=== PATIENT | male | born 1970 | race Caucasian/White ===

== ENCOUNTER → 2017-03-06 | Outpatient (CLI) | payer OTHER ==
[~2017-03-06] MED LIST: ADVIN50050 INH; ALBUAER2 INH; CLR10 PO; MEDLIST; PRLSR20 PO
--- NOTE | 2017-03-07 09:12 | PAP/PSG TECHNICIAN REPORT ---
[facility] Painting Department Supervisor Polysomnogram Report Study name: None Report date: 03/07/2017 Study date: 03/06/2017 Referring Physician: Maria C Bobby M.D. Name: ROSALIND JUNIOR Interpreting Physician: Lester Bobby M.D. Date of : 1970 Painting Department Supervisor: Brenda Murguia, PSGT. Sex: Male Age: 46 StudyType: PSG Weight: 188 lbs Height: 46 years, Height 5' 10.5" Neck Circum:15 inches BMI: 26.59 Medications: ProAir, Prilosec 20 mg, Singular 10 mg, Tums Ultra. Patient History 46 yr. old male in room 3, presents tonight for a split night study. states that he is a heavy snorer and that his has witnessed pauses during breathing. Pt. states that he is tired during the day at times. Neck 15 inches. Parameters Monitored NPSG: E1-M2, E2-M1, Fp1-M2, Fp2-M1, F3-M2, F4-M2, F4-M1, C3-M2, C4-M2, C4-M1, O1-M2, O2-M2, O2-M1, T3-M2, T4-M1, P3-M2, P4-M1, CHIN1, CHIN2, HR, EKG, Legs, PFLOW, SNOR, FLOW, CFLOW, Tidal Volume, THOR, ABDO, SpO2, PLTH, CPRESS, ETCO2 Wave, ETCO2, pH Sleep Architecture Sleep Stages Time at Lights Off 11:03:52 PM STAGES Time (min.) TST (%) Time at Lights On 5:30:22 AM Wake 11.0 -- Total Recording Time (TRT) 388.00 min. N1 5.0 1 Total Sleep Period (TSP) 378.5 min. N2 231.5 62 Total Sleep Time (TST) 375.5min. N3 28.5 8 Awake Time 11.0 min. REM 110.5 29 Wake after Sleep Onset 3.0 min. Sleep Efficiency (SE) 97 % Sleep Onset Latency (IFNN) 8.0 min. Number of Stage 1 Shifts None Awakenings 2 Stage Changes 20 Number of REM periods 4 REM 110.5 29 REM Latency 76.5 min. NREM 265.0 71 Body Position Analysis Supine Right Left Side Prone Vertical Total Sleep Time (min.) 64.0 0.0 118.7 118.66 0.0 203.8 Total Sleep Time (%) 17% 0% 32% 32 0% 100% Total Sleep Time REM (min.) 13.7 0.0 61.0 None 0.0 35.8 Total Sleep Time NREM (min.) 49.8 0.0 57.7 None 0.0 157.5 Intermittent Wake (min.) 0.5 0.0 0.0 None 0.0 10.5 Total Sleep Period (%) 17% None None None None None Arousals Myoclonus (PLM) * Events Count Index Events Count Index Spontaneous 16 3 Events Awake (PLMW) 0 0.0 Respiratory 0 0.0 Events Asleep w/ Arousal (PLMA) 1 0.2 PLM 1 0 Events Asleep w/o Arousal (PLMS) 148 23.6 Snoring 12 2 Total Asleep 149 23.8 Total 29 5 Total 149 23 Respiratory Analysis * CA OA MA CH H RERA Total Count 0 1 0 0 5 0 6 Index 0.0 0.2 0.0 0 0.8 0 1.0 Mean Duration 0.0 14.6 0.0 0.00 21.8 0.0 20.6 Longest Duration 0.0 14.6 0.0 0.00 0.0 0.0 39.6 Respiratory Event Summary Total Supine ~Supine Right Left Prone REM NREM Apneas Count 1 0 1 N/A 1 N/A 1 0 Index 0.2 0 0 N/A 0.5 N/A 1 0 Hypopneas (4% Desat) Count 5 0 5 N/A 1 N/A 1 4 Index 0.8 0.0 1 N/A 0.5 N/A 0.5 0.9 Apneas & All Hypopneas Count 6 0 6 N/A 2 N/A 2 4 Index 1.0 0 1 N/A 1 N/A 1.1 0.9 Respiratory Events (Organic Extractions Technician+All Hyp+RERA) Count 6 0 6 N/A 2 N/A 2 4 Index 1.0 0 1 N/A 1.0 N/A 1.1 0.9 Respiratory Related Arousal Count 0 0 0 N/A 0 N/A 0 0 Index 0.0 0 0 N/A 0 N/A 0 0 Snoring Analysis Supine Right Left Prone REM NREM Total Snore duration 55.5 min Snores count 286 N/A 938 N/A 653 1,279 1,932 Snore mean duration 1.7 Sec Snores index 270 N/A 474 N/A 354.6 289.6 308.7 TST with snoring (%) 14.8% Desaturation Event Summary: Minimum %SpO2 Event Count Mean/Min/Max Duration(sec.) Desaturation Index % Time In Bed > 90 6 26.8 / 8.5 / 44.5 2.4 39.4 86 - 90 4 20.6 / 8.5 / 35.0 1.0 60.6 81 - 85 0 N/A 0.0 0.0 76 - 80 0 N/A 0.0 0.0 71 - 75 0 N/A 0.0 0.0 66 - 70 0 N/A 0.0 0.0 61 - 65 0 N/A 0.0 0.0 56 - 60 0 N/A 0.0 0.0 51 - 55 0 N/A 0.0 0.0 < 50 0 N/A 0.0 0.0 Total REM NREM Awake <50% 0.0 min. 0.0 min. 0.0 min. 0.0 min. 51 - 60% 0.0 min. 0.0 min. 0.0 min. 0.0 min. 61 - 70% 0.0 min. 0.0 min. 0.0 min. 0.0 min. 71 - 80% 0.0 min. 0.0 min. 0.0 min. 0.0 min. 81 - 90% 234.1 min. 21.3 min. 204.1 min. 8.8 min. 91 - 100% 152.4 min. 89.3 min. 60.9 min. 2.2 min. Average 90 92 90 90 Minimum SpO2 86 86 87 87 Desaturation Event Index 0.9 1.6 0.7 0.0 # Desat. Events below 89% 4 1 3 N/A Time(%) with Saturation below 89% 18.2 0.3 17.6 0.3 Time(min.) with Saturation below 89% 70.3 1.2 67.9 1.2 Time (mins) REM (mins) NREM (mins) % of TST SpO2 Below 90% 6 3 N3 40.8 SpO2 Below 88% 1 0 0 3 Heart Rate Analysis Min (bpm) Max (bpm) Average (bpm) Awake 52 81 58 NREM 48 92 54 REM 49 80 57 Overall 48 92 55 Supplemental O2 Values Minimum O2 level: None Value Start Time End Time Painting Department Supervisor Comments PSG Study Mr. Junior slept in the left, and supine positions. No cardiac arrhythmia or PLM's noted. No bruxism noted. Snoring was noted and scored as a 4 on a scale of 1 through 5. (0=no snoring, 5=snoring loud enough to be heard through a closed door or down the [address] way) Mr. Junior awoke to use the restroom zero times during the night. Mr. Junior stated, I did sleep as well as I do when I am in my own bed. The final report will be interpreted and signed by a sleep physician. The completed physician report will then be placed in the patient medical record. Therapy (cm H2O) 0 TIB (min.) 386.5 TST (min.) 375.5 Sleep Onset (min.) 8.0 REM Onset From Sleep (min.) 76.5 Sleep Efficiency % 97 Wakefulness (%) 3 Wakefulness (min.) 11.0 NREM 1 (%) 1 NREM 1 (min.) 5.0 NREM 2 (%) 62 NREM 2 (min.) 231.5 NREM 3 (%) 8 NREM 3 (min.) 28.5 REM (%) 29 REM (min.) 110.5 # Arousals 29 Arousal Index 5 # Snore 1,932 Snore Index 308.7 AHI 1.0 AHI Supine 0 AHI Non-Supine 1 NREM AHI 0.9 REM AHI 1.1 RDI 1.0 # Obstructive Apnea 1 # Central Apnea 0 # Mixed Apnea 0 # Hypopneas 5 RERAs 0 Total Respiratory Events 6 Time Below SpO2 89% (min.) 69.1 Mean NREM SpO2 (%) 90 Mean REM SpO2 (%) 92 Mean Sleep SpO2 (%) 90 Min NREM SpO2 (%) 87 Min REM SpO2 (%) 86 Position Supine (min.) 64.0 Position Non-supine (min.) 312.0 LM Index Sleep 23.8 LM Index NREM 29.4 LM Index REM 10.3 Mean Heart Rate (bpm) 55 Min Heart Rate (bpm) 48
--- NOTE | 2017-03-14 19:59 | POLYSOMNOGRAPH REPORT ---
REFERRING PERSON: Dr. Justin Bobby. COUP[employer] COLLECTION CLERK: Vane Murguia. Mr. Junior is a 46-year-old male with loud snoring, witnessed apneas and some excessive daytime sleepiness. His [place] sleepiness scale score on the evening of this study is not recorded. BMI is 26.59. Following the technical and digital specifications of the [place] [employer] (AASM) a standard diagnostic polysomnogram was performed monitoring EEG, EOG, EMG (chin and leg deviations), oxygen saturation, body position, digital video, respiratory effort and airflow. The sleep Stage and event scoring was based on the AASM Manual for the Scoring of Sleep and Associated Events 2007 edition. Apneas are defined as a drop in the peak thermal sensor excursion by >90% of baseline for at least 10 seconds. Hypopneas were scored using the 4% oxygen desaturation rule (4A-[employer]) and a decrease in the nasal pressure excursions by >30% of baseline for at least 10 seconds. Respiratory effort-related arousal (RERA's) is defined as a sequence of breaths lasting at least 10 seconds characterized by increasing respiratory effort or flattening of the nasal pressure waveform leading to an arousal from sleep when the sequence of breaths does not meet criteria for an apnea or hypopnea. Apnea Hypopnea index (AHI) is defined as the number of apneas and hypopneas occurring in an hour of sleep. Respiratory disturbance index (RDI) is defined as the number of apneas, hypopneas, and RERA's occurring in an hour of sleep. Mr. Junior's total sleep period time was 378.5 minutes. Total sleep time was 375.5 minutes. Sleep efficiency was 97%. Latency to sleep onset was 8 minutes with wake after sleep onset of 3 minutes. Total non-REM sleep time was 265 minutes. He spent 1% of that time in N1 sleep, 62% in N2 sleep and 8% in N3 sleep. REM latency was 76.5 minutes. Total REM sleep time was 110.5 minutes or 29% of total sleep time. There were 29 cortical arousals from sleep. Eleven of these arousals were due to snoring, 16 were spontaneous, and 1 was due to periodic limb movements. There were 149 periodic limb movements noted on this test. Limb movement index was 23.8 and limb movement with arousal index was 0.2. There were no central, 1 obstructive and no mixed apnea on this test. There were 5 hypopneas and no RERA. Apnea-hypopnea index was 1; this is normal. One thousand nine hundred and thirty two snoring events were recorded. Total sleep time with snoring was 14.8%; however, when he did snore, it was loud. Mean saturation was 90% with desaturations to 86%. Saturations were less than 89 for 70.3 minutes of recorded time. There was no cardiac ectopy noted on this study. Mr. Junior's heart rate ranged from a low of 48 beats per minute to a high of 92 beats per minute. IMPRESSION AND PLAN: A 46-year-old male with loud snoring, witnessed apneas without sleep apnea on this study. However, he does have a significant nocturnal hypoxemia. 1. This patient does have a history of asthma. He is currently not treated with inhalers for his asthma. I suggest that he follow up with his PCP regarding his asthma as this is likely to be causing his nocturnal hypoxemia. His saturations were less than 89 for 70.3 minutes, but his lowest saturation was only 86%. 2. For his snoring, this patient may benefit from oral appliance therapy. He should also try to avoid supine sleep as snoring is typically worse in the supine position. SANJUD
== END | disposition home or self-care (01) ==
LOC: C.NEUR 21:00
PROVIDERS: ATTEND Family Medicine
DX: R06.83 Snoring (principal); G47.10 Hypersomnia, unspecified

== ENCOUNTER 2018-09-18 07:05 | Inpatient (IN) ==
[~2018-09-18 07:05] MED LIST changes: -ADVIN50050 INH; -ALBUAER2 INH; +CEFAZOLIN 2000MG 2,000 MG/15 ML SYR IV SCH; -CLR10 PO; -MEDLIST; -PRLSR20 PO
[2018-09-18] MEDS ORDERED: HYDROmorphone INJ 1 MG/ML SYRINGE ONE (07:07)
[2018-09-18] MEDS ORDERED: HYDROmorphone INJ 1 MG/ML SYRINGE IV PRN ×2 (07:10→15:53)
[2018-09-18] MEDS ORDERED: METOCLOPRAMIDE HCL INJ 5 MG/ML 2 ML VIAL IV STA (07:10)
--- NOTE | 2018-09-18 07:25 | XRay Report ---
RIGHT ANKLE 3 VIEWS HISTORY: Pt c/o Rt ankle pain COMPARISON: None. FINDINGS: Displaced spiral fractures involving the distal fibula and distal tibia. There is also a no ndisplaced posterior malleolus fracture. The distal tibial fractures extend to the articular surface. These fractures demonstrate up to 5 mm of lateral displacement. Diffuse soft tissue swelling. No rad iopaque foreign bodies. IMPRESSION: Mildly displaced distal tibial and fibular fractures as described above. Electronically signed by: Familia Hope M.D. 09/18/2018 7:23 AM
[2018-09-18] MEDS ORDERED: MIDAZOLAM HCL 5 MG/ML 1 ML VIAL IV STA (07:29)
[2018-09-18] MEDS ORDERED: fentaNYL citrate 100 MCG/2 ML VIAL IV STA (07:29)
[2018-09-18] MEDS ORDERED: MIDAZOLAM HCL 5 MG/ML VIAL ONE (07:34)
[2018-09-18] MEDS ORDERED: PERCOCET 5/325MG HOMEPACK PO ONE (07:51)
--- NOTE | 2018-09-18 07:51 | Emergency Department Note ---
Entered by Leandro Humphries acting as a scribe for Jesus Delgadillo MD History of Present Illness General Chief complaint: Ankle Pain Time Seen by Provider: 09/18/18 07:10 Source: patient Mode of arrival: EMS Limitations: no limitations History of Present Illness Provider complaint: Rt ankle pain Onset (ago): hour(s) Location: ankle and right Pain Consistency: + constant Quality: + other (fall on ice, ankle pain) Associated symptoms: + denies other symptoms Treatments prior to arrival: other (50 Fentanyl, 4 mg Zofran) The patient is a 48 year old male who presents to the Emergency Room with complaints of constant pain in the right ankle that began this morning. The patient states that he was walking his dog this morning when he slipped on some ice. He tried to catch himself with his right leg and believes he injured the right ankle. He denies hitting his head. He denies any pain radiating up into the right knee. The patient reports to the ED via EMS who administered 100 of Fentanyl and 4 mg of Zofran prior to arrival. Home Medications Home Medications Medication Instructions Recorded Confirmed Type albuterol sulfate [Ventolin HFA] 2 puff INHALATION BID PRN 09/18/18 09/18/18 History calcium carbonate [Calcium 500] 750 mg PO QAM 09/18/18 09/18/18 History montelukast 10 mg PO QAM 09/18/18 09/18/18 History omeprazole 20 mg PO QAM 09/18/18 09/18/18 History acetaminophen [Pain Reliever] 1,000 mg PO Q8 14 Days #84 tab 09/19/18 Rx aspirin 325 mg PO QAM 30 Days #30 tab 09/19/18 Rx oxycodone 5 - 10 mg PO Q6H PRN #30 tab 09/19/18 Rx Allergies Allergy/AdvReac Type Severity Reaction Status Date / Time No Known Allergies Allergy NONE Unverified 09/18/18 08:20 Past Med/Surg History Medical History Asthma with bronchitis Social History marital status: Current Living Situation: Spouse and Family current occupational status: employed Other Information That Helps Us Care for You: No Feels Safe at Home: Yes Safety Concerns: Feels Safe At This Time Smoking Status: Never smoker Hx Alcohol Use: Yes Alcohol type: beer Alcohol Intake Frequency: a few times a month Hx Substance Use: No Beliefs That Will Affect Care: None Preferred Language: Telugu Review of Systems See HPI for pertinent positives & negatives. and A total of 10 systems reviewed and were otherwise negative Physical Exam Vital Signs Vital Signs - 24 hr 09/19/18 06:54 09/19/18 08:00 09/19/18 11:19 Temperature 36.5 C 36.5 C Temperature Source Oral Pulse Rate [Apical] 71 71 Pulse Rate [Right Finger] 88 Respiratory Rate 18 18 Respiratory Effort / Characteristics Non-Labored Respiratory Depth Normal Respiratory Pattern Regular Blood Pressure [Right Arm] 143/89 H 143/89 H Blood Pressure Mean [Right Arm] 107 Pulse Oximetry 95 95 Oxygen Delivery Method Room Air Room Air GENERAL: Awake, alert, well-appearing, in no acute distress HENT: Normocephalic, atraumatic. Oropharynx unremarkable. EYES: Normal conjunctiva. Sclera non-icteric. NECK: Supple. No nuchal rigidity. FROM. No JVD. RESPIRATORY: Clear to auscultation. CARDIAC: Regular rate, normal rhythm. Extremities warm and well perfused. Pulses equal. ABDOMEN: Soft, non-distended. No tenderness to palpation. No rebound or guarding. No masses. RECTAL: Deferred. MUSCULOSKELETAL: Chest examination reveals no tenderness. The back is symmetrical on inspection without obvious abnormality. There is no CVA tenderness to palpation. No joint edema. LOWER EXTREMITIES: There is pain to light touch of the right ankle. No obvious deformity to the distal medial aspect of the ankle. Good capillary refill. No pain with ROM of the right knee. No edema. No discoloration. NEURO: Normal sensorium. No sensory or motor deficits noted. SKIN: No rash or jaundice noted. Procedures Procedural Sedation Indication: fracture/dislocation reduction Presedation Evaluation: Pt Rt tib/fib fracture ASA Class: I Time of Last PO Intake: 18:00 Preparation: pyroglazer applied, pulse oximeter, capnometry used, supplemental O2 applied, reversal agents at bedside, suction/airway equipment at bedside and IV secured Fentanyl: IV Fentanyl dose (mcg): 50 Midazolam: IV Midazolam dose (mg): 2 Patient Tolerated Procedure: well Complications: none Additional Comments: Sedation occurred for 16 minutes Course 0708: Past medical records reviewed. The patient was evaluated in room A10, and a complete history and physical examination were performed. 0715: I performed conscious sedation to reduce the patient's fracture. See procedure note and additional documentation. 0803: I discussed the case with Dr. Schultz - Orthopedic Surgery. He will review xrays. 0827: Dr. Schultz is at bedside. 0857: Dr. Schultz will admit the patient to medicine. Administered Medications Discontinued Medications Acetaminophen (Tylenol) 1,000 mg PO Q8 [facility] Stop: 10/18/18 21:59 Last Admin: 09/19/18 05:48 Dose: 1,000 mg Admin: 09/18/18 21:42 Dose: 1,000 mg Aspirin (Ecotrin) 325 mg PO QAM [facility] Stop: 10/19/18 08:59 Last Admin: 09/19/18 09:59 Dose: 325 mg Bacitracin (Bacitracin) Confirm Administered Dose 50,000 units .ROUTE .STK-MED ONE Stop: 09/18/18 15:44 Last Admin: 09/18/18 18:21 Dose: 50,000 units Bupivacaine HCl/Epinephrine Bitart (Sensorcaine/Epinephrine 0.5% Mpf 1:200,000) Confirm Administered Dose 30 ml .ROUTE .STK-MED ONE Stop: 09/18/18 15:01 Last Admin: 09/18/18 18:22 Dose: Not Given Calcium Carbonate (Os-Laurent 500) 1,250 mg PO QAM [facility] Stop: 10/18/18 10:29 Last Admin: 09/19/18 09:54 Dose: 1,250 mg Admin: 09/18/18 11:02 Dose: Not Given Docusate Sodium (Colace) 100 mg PO BID [facility] Stop: 10/18/18 20:59 Last Admin: 09/19/18 09:54 Dose: 100 mg Admin: 09/18/18 21:42 Dose: 100 mg Fentanyl Citrate (Fentanyl Citrate) 100 mcg IV NOW [facility] Stop: 09/18/18 07:30 Last Admin: 09/18/18 07:39 Dose: 50 mcg Hydromorphone HCl (Dilaudid) Confirm Administered Dose 1 mg .ROUTE .STK-MED ONE Stop: 09/18/18 07:08 Last Admin: 09/18/18 07:09 Dose: 1 mg Hydromorphone HCl (Dilaudid) 0.5 mg IV Q4H PRN PRN Reason: Pain Stop: 10/02/18 10:19 Last Admin: 09/18/18 11:02 Dose: 0.5 mg Cefazolin Sodium (Ancef 2000mg) 2,000 mg in 15 mls @ 3.75 mls/min IV PREOP [facility] ; Protocol Stop: 09/19/18 05:59 Last Admin: 09/18/18 15:40 Dose: 3.75 mls/min Sodium Chloride (Nss 1000ml) 1,000 mls @ 15 mls/hr IV .Q24H [facility] Stop: 10/18/18 10:19 Last Infusion: 09/19/18 10:42 Dose: 0 mls/hr Admin: 09/18/18 11:03 Dose: 15 mls/hr Cefazolin Sodium (Ancef 2000mg) 2,000 mg in 15 mls @ 3.75 mls/min IV Q8H [facility]; Protocol Stop: 09/19/18 08:03 Last Admin: 09/19/18 09:54 Dose: 3.75 mls/min Admin: 09/19/18 00:07 Dose: 3.75 mls/min Sodium Chloride (Nss 1000ml) 1,000 mls @ 100 mls/hr IV .Q10H [facility] Stop: 09/19/18 18:39 Last Admin: 09/19/18 07:58 Dose: Not Given Metoclopramide HCl (Reglan) 10 mg IV NOW STA Stop: 09/18/18 07:11 Last Admin: 09/18/18 07:18 Dose: 10 mg Midazolam HCl (Versed) 2 mg IV NOW STA Stop: 09/18/18 07:30 Last Admin: 09/18/18 07:38 Dose: 2 mg Midazolam HCl (Versed) Confirm Administered Dose 10 mg .ROUTE .STK-MED ONE Stop: 09/18/18 07:35 Last Admin: 09/18/18 07:54 Dose: Not Given Montelukast Sodium (Singulair) 10 mg PO QAM [facility] Stop: 10/18/18 10:29 Last Admin: 09/19/18 09:54 Dose: 10 mg Admin: 09/18/18 11:02 Dose: Not Given Multivitamins (Multivitamin Tab) 1 tab PO QAM [facility] Stop: 10/19/18 08:59 Last Admin: 09/19/18 09:54 Dose: 1 tab Ondansetron HCl (Zofran) 4 mg IV Q6H PRN PRN Reason: Nausea/Vomiting Stop: 10/18/18 10:19 Last Admin: 09/18/18 19:57 Dose: 4 mg Oxycodone HCl (Roxicodone Immediate Rel) 5 mg PO Q4H PRN PRN Reason: pain Stop: 10/02/18 09:13 Last Admin: 09/19/18 11:05 Dose: 5 mg Admin: 09/19/18 09:55 Dose: 5 mg Oxycodone/Acetaminophen (Percocet 5/325 Homepack) 1 homepack PO UD ONE Stop: 09/18/18 07:52 Last Admin: 09/18/18 10:09 Dose: Not Given Pantoprazole Sodium (Protonix) 40 mg PO QAM [facility] Stop: 10/18/18 10:29 Last Admin: 09/19/18 09:54 Dose: 40 mg Admin: 09/18/18 11:02 Dose: Not Given Medical Decision Making Differential Diagnosis Differential diagnosis: Etiologies such as fracture, dislocation, neurovascular compromise, compartment syndrome, soft tissue injury, as well as others were entertained. Medical Records Attestation: I reviewed the patient's medical records. Home Medications Current Medication List: was personally reviewed by [place] Laboratory Data Lab Results 09/18/18 Range/Units 10:41 Blood Type O Positive Antibody Screen NEGATIVE Imaging Data Attestation: I personally reviewed and interpreted this imaging study as follows : Radiologist's Impression: XR ankle RT min 3V routine CLINICAL HISTORY: Pt c/o Rt ankle pain COMPARISON STUDY: Right ankle 09/18/2018. FINDINGS: Overlying splint material obscures fine bony detail. Interval reduction of the distal fibular and distal tibial fractures with improved anatomic alignment. There is up to 2 mm of lateral and posterior displacement remaining. No dislocation. Diffuse soft tissue swelling. IMPRESSION: Improved anatomic alignment status post reduction of the distal fibular/tibial fractures. Electronically signed by: Familia Hope M.D. 09/18/2018 8:16 AM RIGHT ANKLE 3 VIEWS HISTORY: Pt c/o Rt ankle pain COMPARISON: None. FINDINGS: Displaced spiral fractures involving the distal fibula and distal tibia. There is also a nondisplaced posterior malleolus fracture. The distal tibial fractures extend to the articular surface. These fractures demonstrate up to 5 mm of lateral displacement. Diffuse soft tissue swelling. No radiopaque foreign bodies. IMPRESSION: Mildly displaced distal tibial and fibular fractures as described above. Electronically signed by: Familia Hope M.D. 09/18/2018 7:23 AM Blood Pressure Blood Pressure Findings: Elevated blood pressure MDM Narrative This is a 48-year-old male who presents the emergency department during a period of high volume and high acuity with an obvious deformity to his right ankle. Patient was sedated and the ankle reduced as above so could be placed in a splint. He was given IV Dilaudid for his pain. I did discuss the case with the orthopedic surgeon [employer] who agreed to see the patient and admit the patient. Patient and are in agreement with the treatment plan. Impression & Plan Closed fracture of right fibula and tibia Discharge Plan Visit Data *Final* Discharge Date/Time: 09/18/18 09:59 Chief Complaint: Ankle Pain ED Provider: Jesus Delgadillo Discharge Problem: Closed fracture of right fibula and tibia Patient Disposition: Admitted As Inpatient Discharge Instructions Interventions: ED Discharge Assessment Last Done: 09/18/18 09:59 The scribe's documentation has been prepared under my direction and personally reviewed by me in its entirety. I confirm that the note above accurately reflects all work, treatment, procedures, and medical decision making performed by me.
--- NOTE | 2018-09-18 07:54 | Pre Anesthesia Assessment ---
Date of Service September 18, 2018 Pre Sedation Assessment Vital Signs Temp Pulse Pulse Resp BP Pulse Ox 09/19/18 11:19 36.5 C 71 88 18 143/89 H 95 09/19/18 06:54 36.5 C 71 18 143/89 H 95 Pre-Sedation Airway Assessment Smoking Status: Never smoker Short, Thick Neck: No Mallampati Class: I ASA: ASA1 NPO Status Date of Last Intake of Fluids: 09/17/18 Time of Last Intake of Fluids: 21:00 Date of Last Intake of Solid Food: 09/17/18 Time of Last Intake of Solid Foods: 21:00 Notes The planned sedation has been discussed with the patient. Informed Consent was obtained. I have identified the patient, determined the appropriateness of sedation and have assessed the patient immediately prior to the procedure. All medicine(s) and interventions are by my order.
--- NOTE | 2018-09-18 07:54 | Emergency Department Note ---
Post Sedation Assessment Vital Signs Temp Pulse Pulse Resp BP Pulse Ox 09/19/18 11:19 36.5 C 71 88 18 143/89 H 95 09/19/18 06:54 36.5 C 71 18 143/89 H 95 Post Sedation Plan On clinical assessment, the patient appears to have tolerated the sedation without complications. Patient is recovering as anticipated. Patient will continue to be monitored by nursing and may be discharged when sedation discharge criteria are met per below protocol. Upon Completions of procedure and additional 15 minutes continue every 5 minute vital signs and the P.A.R. score; then discharge to a Phase I or Fast Track to Phase II per the following guidelines: * Discharge Patient to appropriate Phase II area if PAR is 8 or greater or return to pre- procedure baseline. The post - procedure orders will be as directed. * If PAR score is less than 8 or not return to pre-procedure baseline then patient will follow Phase I monitoring till PAR is reached for Phase II. The Phase I may be done in procedure room or may call to secure a Phase I area. * If naloxone or flumazenil are used for reversal, hold in Phase I for continued monitoring from when last reversal dose was given for a minimum of 60 minutes or longer pending the nurse and/or physician discretion of patient condition before discharge to Phase II. Please call the Sedation Physician to re-evaluate and complete post-note for discharge to Phase II area. Do NOT discharge from procedure sedation or Phase 1 until post- sedation evaluation note is complete by procedure /sedation MD Sedation Discharge Instructions to be given to the patient at discharge to home. Sedation Data Sedation Times Sedation Start Date: 09/18/18 Sedation Start Time: 07:39
--- NOTE | 2018-09-18 08:18 | XRay Report ---
XR ankle RT min 3V routine CLINICAL HISTORY: Pt c/o Rt ankle pain COMPARISON STUDY: Right ankle 09/18/2018. FINDINGS: Overlying splint material obscures fine bony detail. Interval reduction of the distal fibul ar and distal tibial fractures with improved anatomic alignment. There is up to 2 mm of lateral and p osterior displacement remaining. No dislocation. Diffuse soft tissue swelling. IMPRESSION: Improved anatomic alignment status post reduction of the distal fibular/tibial fractures . Electronically signed by: Familia Hope M.D. 09/18/2018 8:16 AM
[2018-09-18] MEDS ORDERED: ONDANSETRON INJ 2 MG/ML 2 ML VIAL IV PRN ×2 (10:20→15:53)
[2018-09-18] MEDS ORDERED: DiphenhydrAMINE HCL 50 MG/ML VIAL IV PRN (10:20)
[2018-09-18] MEDS ORDERED: HYDROmorphone INJ 0.5 MG/0.5 ML SYR IV PRN (10:20)
[2018-09-18] MEDS ORDERED: ALBUTEROL HFA 8 GM INHALER INH PRN (10:20)
[2018-09-18] MEDS ORDERED: SODIUM CHLORIDE 0.9% 1000ML 1,000 ML IV SCH ×2 (10:20→18:40)
[2018-09-18] MEDS: MONTELUKAST SODIUM 10 MG TABLET PO SCH (11:02)
[2018-09-18] MEDS: CALCIUM CARBONATE 1250MG TAB PO SCH (11:02)
[2018-09-18] MEDS: PANTOprazole 40 MG TAB PO SCH (11:02)
[2018-09-18] MEDS ORDERED: fentaNYL citrate 100 MCG/2 ML VIAL ONE ×2 (12:41→15:00)
[2018-09-18] MEDS ORDERED: MIDAZOLAM HCL 1 MG/ML 2ML VIAL ONE ×2 (12:41→14:59)
--- NOTE | 2018-09-18 13:06 | History and Physical Report ---
DATE OF ADMISSION: 09/18/2018 REASON FOR ADMISSION: Pain in the right ankle. HISTORY OF PRESENT ILLNESS: The patient is a 48-year-old white male who was walking the dog this morning, he was going up in alleyway and thought it was clear of any ice, etc., he ended up slipping and twisting his ankle and falling to the ground. He noticed that his ankle was in a weird position and was having a lot of pain and was unable to ambulate. He was brought to the Emergency Room and was seen by the staff. X-rays were taken and it was found that he had distal tib-fib fracture. Dr. Delgadillo did a closed reduction and placed the patient's ankle in a splint. Dr. Brown reviewed the x-rays and it was felt that the patient would need an ORIF of the right ankle and he was admitted for further care. PAST MEDICAL HISTORY: Asthma, GERD. He denies hypertension, diabetes mellitus, tuberculosis, hepatitis, COPD, rheumatic fever. PAST SURGICAL HISTORY: Vasectomy. FAMILY HISTORY: Diabetes with his mother. History of depression with his mother and father. Alcoholism with his father. SOCIAL HISTORY: The patient is and does not use tobacco, but does drink alcohol on occasion, mainly over the weekend. MEDICATIONS: He is on albuterol inhaler 2 puffs inhaled b.i.d. p.r.n. shortness of breath, montelukast 10 mg p.o. q.a.m., omeprazole 20 mg p.o. q.a.m. and calcium carbonate 750 mg p.o. q.a.m. ALLERGIES: NKDA. REVIEW OF SYSTEMS: No recent fevers, chills, night sweats, unexplained weight loss or weight gain. No flu or cold-like symptoms. No increased cough or sputum production. No shortness of breath on exertion or at rest. He has not had an exacerbation of his asthma that has required hospitalization and he states that he rarely carries his inhaler anymore due to the fact that it is so well controlled. No history of chest pain, chest pressure, irregular heartbeat. No history of CAD. No history of abdominal pain, unusual nausea, vomiting or diarrhea. No hematemesis, melena, hematochezia. No history of hepatitis. Denies any history of renal calculi, hematuria, pyuria, dysuria or frequent urinary tract infections. No history of CVA, TIA, seizure disorder, epilepsy or migraine headache. PHYSICAL EXAMINATION: GENERAL: The patient is a well-developed, well-nourished white male who is alert and oriented x3 in no acute distress, pleasant and cooperative. SKIN: Warm and dry. Turgor is good. HEENT: Head is normocephalic, atraumatic. There is no scleral icterus or injection seen at this time. Nasal airway is patent. Oral mucosa is pink and moist. NECK: Supple without adenopathy or bruits. HEART: Regular rate and rhythm without murmurs, gallops or splits. LUNGS: CTA without rales, rhonchi or wheezes. ABDOMEN: Soft, round and nontender. Bowel sounds are present x4. GENITALIA AND RECTAL: Not performed at this time. EXTREMITIES: On examination of the right lower extremity, he has a posterior splint applied to the foot, ankle and is left in place. Toes were pink and warm, and they move well and he has good sensation. He does have a good dorsalis pedis pulse noted. He has no pain in the right knee. He has no pain in the right hip. Left lower extremity at this time is benign on exam and has good range of motion. Upper extremities are unaffected and are within normal limits and has good range of motion as well. He denies any neck pain. Denies thoracic or low back pain at this time. There was no gross motor or sensory loss seen at this time. ASSESSMENT: Distal tibia and fibular fracture. PLAN: The patient will require ORIF of above-noted fracture.
--- NOTE | 2018-09-18 14:40 | History & Physical Bridge Note ---
Date of Service September 18, 2018 History & Physical Bridge Note I have examined the patient, reviewed the History & Physical and in the interval since the performance of the History & Physical I have noted the following changes of clinical significance: no changes noted
--- NOTE | 2018-09-18 14:48 | Anesthesiology Consultation ---
Date of Service September 18, 2018 Assessment & Plan (1) Encounter for pre-operative examination: Chart Review Chart Review: Acceptable Risk for Surgery and Patient NOT seen in Pre Admission Testing Consults Requested none NPO Date Last Intake of Fluids: 09/17/18 Time Last Intake of Fluids: 23:00 Date Last Intake of Solids: 09/17/18 Time Last Intake of Solids: 20:30 History Surgery Operation Date: 09/18/18 11:20 Proposed Procedures p Open Reduction Internal Fixation Ankle Right Distal Tibula/Fibula Fracture - Simon Brown DO Height/Weight Height: 5 ft 10 in Weight: 86 kg Allergies Allergy/AdvReac Type Severity Reaction Status Date / Time No Known Allergies Allergy NONE Unverified 09/18/18 08:20 Medications Home Medications Medication Instructions Recorded Confirmed Last Taken albuterol sulfate [Ventolin HFA] 2 puff INHALATION BID PRN 09/18/18 09/18/18 Unknown calcium carbonate [Calcium 500] 750 mg PO QAM 09/18/18 09/18/18 09/17/18 21:00 montelukast 10 mg PO QAM 09/18/18 09/18/18 09/17/18 21:00 omeprazole 20 mg PO QAM 09/18/18 09/18/18 09/17/18 21:00 Active Medications Generic Name Dose Route Start Last Admin Trade Name Freq PRN Reason Stop Dose Admin Calcium Carbonate 1,250 mg 09/18/18 10:30 09/18/18 11:02 Os-Laurent 500 PO 10/18/18 10:29 Not Given QAM UMAIR Hydromorphone HCl 0.5 mg 09/18/18 10:20 09/18/18 11:02 Dilaudid IV 10/02/18 10:19 0.5 mg Q4H PRN Administration Pain Sodium Chloride 1,000 mls @ 15 mls/hr 09/18/18 10:20 09/18/18 11:03 Nss 1000ml IV 10/18/18 10:19 15 mls/hr .Q24H UMAIR Administration Montelukast Sodium 10 mg 09/18/18 10:30 09/18/18 11:02 Singulair PO 10/18/18 10:29 Not Given QAM UMAIR Pantoprazole Sodium 40 mg 09/18/18 10:30 09/18/18 11:02 Protonix PO 10/18/18 10:29 Not Given QAM [facility] Past Medical History Medical History Asthma with bronchitis Past Surgical History none Past Anesthesia History No Hx of Anesthesia Complications and No Family Hx of Anesthesia Complications History of PONV No Motion Sickness Screening History of Motion Sickness: No Social History Smoking Status: Never smoker Hx Alcohol Use: Yes Alcohol type: beer alcohol intake frequency: a few times a month Hx Substance Use: No substance use type: does not use Exercise / Class Metabolic Activity II 4-5 Yardwork/Stairs/Walk up hill Physical Exam Vital Signs Last Vital Signs Temp 36.8 C 09/18/18 14:31 Pulse 61 09/18/18 14:31 Resp 18 09/18/18 14:31 BP 136/92 09/18/18 14:31 Pulse Ox 99 09/18/18 14:31 Testing Laboratory Results Blood Type O Positive 09/18/18 10:41 Antibody Screen NEGATIVE 09/18/18 10:41
[2018-09-18] MEDS ORDERED: ROPIVACAINE 0.5% 5 MG/ML 30 ML VIAL ONE (14:55)
[2018-09-18] MEDS ORDERED: LIDOCAINE HCL 2% 2 ML VIAL/AMP(20MG/ML) INFIL ONE (14:59)
[2018-09-18] MEDS ORDERED: PROPOFOL IV EMULSION 10 MG/ML 20 ML VIAL IV ONE (14:59)
[2018-09-18] MEDS ORDERED: BUPIVACAINE/EPINEPHRINE 0.5% MPF 1:200,000 30 ML VIAL ONE (15:00)
[2018-09-18] MEDS ORDERED: BACITRACIN INJ 50,000 UNIT VIAL ONE (15:43)
[2018-09-18] MEDS ORDERED: DEXAMETHASONE SOD INJ 4 MG/ML VIAL ONE (15:43)
[2018-09-18] MEDS ORDERED: HYDROmorphone INJ 2 MG/ML SYR/VIAL ONE (15:43)
[2018-09-18] MEDS ORDERED: ONDANSETRON INJ 2 MG/ML 2 ML VIAL ONE (15:43)
[2018-09-18] MEDS ORDERED: ATROPINE SULFATE 0.1 MG/ML 10ML SYR IV PRN (15:53)
[2018-09-18] MEDS ORDERED: fentaNYL citrate 100 MCG/2 ML VIAL IV PRN (15:53)
[2018-09-18] MEDS ORDERED: ePHEDrine sulfate 50 MG/ML AMP IV PRN (15:53)
[2018-09-18] MEDS ORDERED: ePHEDrine sulfate 50 MG/ML SYR ONE (15:55)
[2018-09-18] MEDS ORDERED: GLYCOPYRROLATE 0.2 MG/ML VIAL ONE (16:16)
--- NOTE | 2018-09-18 17:41 | Post Operative Brief Note ---
Immediate Post Op Note v1 Date of Surgery September 18, 2018 Pre & Post Diagnosis Operation Date: 09/18/18 11:20 Pre-Op Diagnosis: Right displaced, intra-articular, comminuted distal Tibial pilon fracture and displaced lateral malleolus fracture Post-Op Diagnosis: Right displaced, intra-articular, comminuted distal Tibial pilon fracture and displaced lateral malleolus fracture Procedure Operation Date: 09/18/18 11:20 Actual Procedures p Open Reduction Internal Fixation Ankle Right intra-articular, displaced distal Tibial pilon fracture/and lateral malleolus fracture(Right) - Simon Brown DO Surgeon Simon Brown DO Wool Scourer Diaz Schultz PA-C Estimated Blood Loss 20 Findings Consistent with Post-Op Diagnosis Specimens None Anesthesia Type General Regional Complications none Disposition Accompanied Patient To Recovery: No Disposition: Recovery Room Overlapping Procedure I was present for: the critical portions of procedure. I was immediately available: during the entire case.
--- NOTE | 2018-09-18 18:04 | Fluoroscopy Report ---
FL tibia/fibula RT 2V HISTORY: 48 years-old Male RT TIB/FIB FX status post RF of acute distal tibial and fibular fractures COMPARISON: Right ankle radiographs of same day at 7:54 AM TECHNIQUE: 3 spot fluoroscopic images of the right tibia and fibula were obtained utilizing 72.2 seco nds fluoroscopy time FINDINGS: Status post ORIF changes of the distal leg with medial plate and screw fixation of the distal tibia a nd lateral plate and screw fixation of the distal fibula. There is improved near anatomic alignment o f the acute distal tibial and fibular fractures, improved from comparison. IMPRESSION: Improved alignment status post ORIF. The above report was generated using voice recognition software. It may contain grammatical, syntax o r spelling errors. Electronically signed by: Mervin Lr M.D. 09/18/2018 6:03 PM
--- NOTE | 2018-09-18 18:11 | Anesthesiology Progress Note ---
Date of Service September 18, 2018 Anesthesia Post Procedure Vital Signs Vital Signs: Temp Pulse Pulse Pulse Resp BP BP 09/18/18 18:05 84 16 09/18/18 17:55 78 16 09/18/18 17:45 36.4 C L 93 H 17 09/18/18 14:31 36.8 C 61 18 136/92 09/18/18 10:24 36.5 C 62 18 135/81 09/18/18 08:55 68 16 120/89 09/18/18 08:15 54 L 122/87 09/18/18 08:07 67 125/89 09/18/18 08:05 69 131/81 09/18/18 07:55 60 09/18/18 07:52 67 132/94 09/18/18 07:43 72 161/100 H 09/18/18 07:40 85 133/99 09/18/18 07:37 09/18/18 07:13 36.7 C 69 14 146/92 H 09/18/18 07:06 66 146/92 H BP Pulse Ox 09/18/18 18:05 139/82 95 09/18/18 17:55 136/89 98 09/18/18 17:45 139/90 98 09/18/18 14:31 99 09/18/18 10:24 99 09/18/18 08:55 97 09/18/18 08:15 94 09/18/18 08:07 98 09/18/18 08:05 98 09/18/18 07:55 09/18/18 07:52 97 09/18/18 07:43 98 09/18/18 07:40 100 09/18/18 07:37 99 09/18/18 07:13 100 09/18/18 07:06 Pain Intensity Right Ankle: Pain Intensity: 5 Notes Mental Status: alert / awake / arousable and participated in evaluation Patient Amnestic to Procedure: Yes Nausea / Vomiting: adequately controlled Pain: adequately controlled Airway Patency, RR, SpO2: stable & adequate BP & HR: stable & adequate Hydration State: stable & adequate Anesthetic Complications: no major complications apparent and Pt Satisfied with anesthetic care
[2018-09-18] MEDS ORDERED: METOCLOPRAMIDE HCL INJ 5 MG/ML 2 ML VIAL IV PRN (18:26)
[2018-09-18] MEDS ORDERED: MAGNESIUM HYDROXIDE SUSP 30 ML UDC PO PRN (18:26)
[2018-09-18] MEDS ORDERED: NALOXONE HCL 0.4 MG/1 ML VIAL/CARP IV PRN (18:26)
[2018-09-18] MEDS: ACETAMINOPHEN 500 MG TAB PO SCH (21:42)
[2018-09-18] MEDS: DOCUSATE SODIUM 100 MG CAP PO SCH (21:42)
[2018-09-18] MEDS ORDERED: Nursing to Pharmacy Communication ONE (23:17)
[2018-09-19] MEDS: CEFAZOLIN 2000MG 2,000 MG/15 ML SYR IV SCH ×2 (00:07→09:54)
--- NOTE | 2018-09-19 01:30 | Operative Report ---
DATE OF OPERATION: 09/18/2018 PREOPERATIVE DIAGNOSES: 1. Right displaced intraarticular tibial pilon fracture. 2. Displaced lateral malleolus fracture. POSTOPERATIVE DIAGNOSES: 1. Right displaced intraarticular tibial pilon fracture. 2. Displaced lateral malleolus fracture. PROCEDURES: 1. Right open reduction internal fixation tibial pilon fracture. 2. Open reduction internal fixation lateral malleolus fracture with application of splint. SURGEON: Simon Brown DO SHEET METAL ROOFER: ALTAF aCmacho who was present for patient positioning, sterile prep and drape, management of retractors and instruments. He was present through the critical portions of the case including wound closure, application of sterile dressing and transport of the patient to recovery. ANESTHESIA: General LMA with popliteal block. SPECIMENS: None. DRAINS: None. COMPLICATIONS: None. BLOOD LOSS: 20 mL. PERTINENT HISTORY: This is a 48-year-old gentleman who sustained a twisting fall on his right lower extremity earlier today while walking a dog. He had obvious displaced deformity of the right ankle, unable to ambulate, transported to [facility], radiographs were performed and noted to be a fracture dislocation involving the right tibial pilon fracture and the distal tibia lateral malleolus. The emergency physician reduced and splinted the limb and the patient was then seen by orthopedics and then after evaluation, the patient was then scheduled for surgery as indicated. All potential risks, benefits, complications, alternatives, rehab, potential risk of incomplete relief of symptoms, need for further surgery, deep venous thrombosis, pulmonary embolism, , persistent pain, swelling, scarring, weakness, neurovascular injury, wound complications, hardware failure, nonunion, malunion and bone fracture were discussed with the patient. The patient decided to proceed with the procedure as indicated. DESCRIPTION OF PROCEDURE: The patient had a popliteal block performed in the Preoperative Holding Area and then taken to the operative suite, placed supine on the Operating Room table. I reviewed consent and identification of operative site and the patient. The patient was anesthetized, LMA was placed. Tourniquet was placed on the right thigh over cast padding. Right lower extremity was sterilely prepped and draped in the usual fashion, elevated and exsanguinated with an Esmarch bandage, tourniquet inflated to 350 mmHg. Next, a 15 blade scalpel was used to make an incision over the lateral malleolus. Incision was deepened through subcutaneous tissue. Meticulous hemostasis was achieved with electrocautery. Full thickness skin flaps were developed. Sensory cutaneous nerves and the deep peroneal nerve were retracted and protected with Fermín rakes. Peroneal tendons were also retracted and protected. Incision was made over the periosteum at the site of the fracture. Hematoma was evacuated. The fracture was then irrigated and debrided with a dental pick and then reduced with lions jaw forceps x2. Next, a 3.5 mm lag screw was placed from anterior to posterior under live fluoroscopic assistance followed by confirmation of near anatomic reduction and fixation of the fibula. Next, a Synthes locking one-third tubular plate was then contoured and then firmly affixed to the lateral malleolus to stabilize and the anatomic reduction and fixation. Next, attention then directed toward the medial malleolus and the tibial pilon. A 15 blade scalpel was used to make an incision centered over the medial malleolus extending from proximal to distal. The incision was deepened through subcutaneous tissue. Meticulous hemostasis was achieved with cautery. The saphenous vein was retracted and protected. Next, a Barron elevator was used to elevate periosteum of the medial and anterior aspect of the tibia followed by placement of a locking periarticular medial distal tibial plate which was then contoured with the bending iron. Next, this was then placed through the subcutaneous incision site and guided up the proximal tibia under live fluoroscopic assistance. Next, a nonlocking screw was placed distally to compress the fracture and the plate to the bone followed by placement of a second nonlocking screw in the mid portion of the plate through a small stab incision and fluoroscopic assistance. This achieved anatomic reduction and fixation and stabilization of the plate and bone of the tibia to assure a low profile fixation. Next, multiple stab incisions were made into the medial lower leg under live fluoroscopic assistance with placement of multiple locking screws to achieve anatomic reduction and fixation of the tibial pilon fracture. Next, stress views were obtained confirming that the syndesmosis was indeed reduced and intact, followed by copious irrigation with sterile normal saline in all incisions. Next, the deep periosteum was then closed in the lateral aspect with interrupted 2-0 Vicryl sutures. The medial periosteum was closed over the distal plate with interrupted 2-0 Vicryl. The dermis was closed using buried interrupted 3-0 Vicryl and then skin incisions were all closed with 4-0 nylon sutures. Next, a sterile compressive dressing and bulky Socrates Raymundo plaster splint was applied with the foot held in neutral dorsiflexion. The tourniquet was released. The patient was awakened and taken to Recovery Room in a stable condition. I attest to the content of the Intraoperative Record and any orders documented therein. Any exception s are noted below.
[2018-09-19] MEDS: ACETAMINOPHEN 500 MG TAB PO SCH (05:48)
--- NOTE | 2018-09-19 07:44 | Orthopedic Progress Note ---
Date of Service September 19, 2018 Assessment & Plan (1) Closed fracture of right fibula and tibia: POD 1 s/p ORIF Tib/Fib fx PT/OT today Plan for dc to home today if tolerating PT and pain remains controlled Subjective POD 1 s/p Right ORIF distal Tib/Fib fx Pt awake, alert. No complaints this AM. Feels the block is still working well. Denies pain at this time. Physical Exam 2 Vital Signs (Past 24 Hours): Last Vital Signs Temp 36.5 C 09/19/18 06:54 Pulse 71 09/19/18 06:54 Resp 18 09/19/18 06:54 BP 143/89 H 09/19/18 06:54 Pulse Ox 95 09/19/18 06:54 Physical Exam: Splint is C/D/I. Toes are pink/warm. Cap refill < 2 seconds. States toes are still numb and he is unable to move them. _ (1) Closed fracture of right fibula and tibia Encounter type: initial encounter Fracture healing: Qualified Code(s): S82.201A - Unspecified fracture of shaft of right tibia, initial encounter for closed fracture; S82.401A - Unspecified fracture of shaft of right fibula, initial encounter for closed fracture
[2018-09-19] MEDS ORDERED: ASPIRIN 325 MG ECTAB PO SCH (09:00)
[2018-09-19] MEDS ORDERED: MULTIVITAMIN TAB PO SCH (09:00)
[2018-09-19] MEDS: MONTELUKAST SODIUM 10 MG TABLET PO SCH (09:54)
[2018-09-19] MEDS: PANTOprazole 40 MG TAB PO SCH (09:54)
[2018-09-19] MEDS: DOCUSATE SODIUM 100 MG CAP PO SCH (09:54)
[2018-09-19] MEDS: CALCIUM CARBONATE 1250MG TAB PO SCH (09:54)
[2018-09-19] MEDS: OXYCODONE HCL IR 5 MG TAB (IMMEDIATE RELEASE) PO PRN ×2 (09:55→11:05)
--- NOTE | 2018-09-25 11:30 | Discharge Summary ---
DISCHARGE DIAGNOSIS: Right displaced intraarticular comminuted distal tibial pilon fracture and displaced lateral malleolar fracture. SECONDARY DIAGNOSES: Asthma, gastroesophageal reflux disease. CONSULTATIONS: None. COMPLICATIONS: None. PROCEDURES: ORIF right intra-articular displaced distal tibia pilon fracture and lateral malleolar fracture by Dr. Brown on 09/18/2018. BRIEF HISTORY: As dictated in history and physical. HOSPITAL SUMMARY: The patient was admitted on the above-noted date and had the above-noted surgery performed, which he tolerated well. On his first postoperative day, he was awake and alert, had no complaints. Pain was controlled. Block was still providing adequate pain control. Vital signs are stable. He is afebrile. Splint was clean, dry and intact. Toes were pink and warm. Cap refill is less than 2 seconds. He stated that his toes were still numb and he was unable to move them due to the block still working. He was started on PT and OT protocols and planned for discharge to home after PT. He progressed well and was felt he could be discharged to home on 09/19/2018. For further review, please see chart. LABORATORY AND X-RAY DATA: As per chart. DISCHARGE INSTRUCTIONS: The patient was discharged to home in satisfactory condition on 09/19/2018. DIET: Regular. ACTIVITY: Nonweightbearing right lower extremity with crutches. Follow written instructions as noted and follow up with Dr. Brown in 2 weeks. The patient to call for appointment if one has not been made for you. DISCHARGE MEDICATIONS: Acetaminophen 1000 mg p.o. q. 8 hours, aspirin 325 mg p.o. q.a.m., oxycodone 5-10 mg p.o. q. 6 hours p.r.n., resume home meds as listed.
== END 2018-09-19 12:16 | disposition home or self-care (01) | DRG 494 ==
LOC: ED 07:05 → 3N 09:12